=== PATIENT | female | born 1950 | race Caucasian/White ===

== ENCOUNTER 2019-05-24 18:03 | Inpatient (IN) ==
[2019-05-24] MEDS ORDERED: DUONEB (A & A) INH ONE (19:30)
[2019-05-24] MEDS ORDERED: SOLU-MEDROL IV ONE (19:30)
[2019-05-24 20:19] LABS: BASO# 0.09 X1000 (0.0-0.2); BASO% 1.6 % (0.0-0.8); EOS# 0.11 X1000 (0.0-0.7); EOS% 1.9 % (0.0-10.0); IMM GRAN# 0.02 X1000 (0.0-0.04); IMM GRAN% 0.4 % (0.0-0.5); LYMPH# 0.99 X1000 (1.2-3.4); LYMPH% 17.4 % (20.5-51.1); MCHC 33.3 g/dL (33-37); MCV 96.1 FL (81-99); MONO# 0.68 X1000 (0.11-0.59); MONO% 11.9 % (1.7-9.3); MPV 10.7 FL (7.4-10.4); NEUT# 3.81 X1000 (1.4-6.5); NEUT% 66.8 % (42.2-75.2); PLT 222 X1000 (130-400); RBC 4.37 XMIL (4.2-5.4); RDW 12.4 % (11.5-14.5)
--- NOTE | 2019-05-24 20:19 | Diag Imaging Result Doc PS360 ---
EXAM: CHEST-1 VIEW HISTORY: sob TECHNIQUE: Single view COMPARISON: None. FINDINGS: The lungs are well expanded. The heart is not enlarged. The vessels are not distended. There are no infiltrates. No effusion identified. IMPRESSION: Negative exam. Electronically signed by Rasheed Wren 05/24/2019 8:16 PM
[2019-05-24 20:25] LABS: AGAP 11; ALB/GLOB RATIO 1.5; ALBUMIN 4.2 g/dL (3.5-5.0); ALKALINE PHOSPHATASE 81 U/L (32-104); BUN 3 mg/dL (8-22); CALCIUM 8.5 mg/dL (8.8-10.2); CHLORIDE 93 mmol/L (98-107); COSMO 255; CREATININE 0.8 mg/dL (0.5-0.9); ESTIMATED GFR > 60; GLUCOSE 97 mg/dL (70-104); GOT 29 U/L (10-30); GPT 13 U/L (10-36); POTASSIUM 4.3 mmol/L (3.5-5.1); SODIUM 129 mmol/L (136-145); TCO2 25 mmol/L (25-35); TOTAL BILIRUBIN 0.22 mg/dL (0.20-1.00)
--- NOTE | 2019-05-24 20:37 | EKG Report ---
Test Performed on : 05/24/2019 8:33:05 PM Test Reason : SOB Blood Pressure : / mmHG Vent. Rate : 083 BPM Atrial Rate : 083 BPM P-R Int : 116 ms QRS Dur : 100 ms QT Int : 376 ms P-R-T Axes : 071 -64 073 degrees QTc Int : 441 ms Normal sinus rhythm. Possible Left atrial enlargement Left axis deviation Incomplete right bundle branch block Septal infarct , age undetermined Abnormal ECG No previous ECGs available Unconfirmed Result
--- NOTE | 2019-05-24 23:30 | PROVIDER DOCUMENTATION ---
This chart was entered by Josh Waggoner Scribe, acting as scribe for Jose Ochoa MD. HPI-Respiratory General - General Chief Complaint: Shortness of Breath Stated Complaint: SOB Time Seen by Provider: 05/24/19 19:25 Source: patient Allergies/Adverse Reactions: Patient Allergies Allergy/AdvReac Type Severity Reaction Status Date / Time Penicillins Allergy ANAPHYLAXIS Verified 05/24/19 18:39 Sulfa (Sulfonamide Allergy HIVES Verified 05/24/19 18:39 Antibiotics) - History of Present Illness-Resp Nature of Presenting Problem: Pt is a 69 yof who presents to the ED with a CC of shortness of breath. Pt reports she became short of breath last night at approximately 2200. Pt reports a hx of COPD and states she has a chronic cough. Pt reports her cough has recently worsened and also complains of nasal congestion, a headache, and neck pain. Pt reports using an emergency inhaler and taking symbicort for her symptoms but denies any relief. Quality of Pain: reports: dull Severity in ED: reports: mild Onset/Duration: reports: last night Timing: reports: still present Cough Quality/Degree: reports: mild Episode Frequency: chronic episodes Current Respiratory Medication Therapy: Initiated see nurses note Associated Symptoms: reports: cough, nasal congestion, shortness of breath Similar Symptoms Previously?: Yes Recently seen or treated by another doctor?: No Review of Systems - Adult - REVIEW OF SYSTEMS - ADULT Constitutional: reports: see HPI Eyes: reports: no symptoms reported Ears, Nose, Mouth & Throat: reports: see HPI, sinus problem Respiratory: reports: see HPI, chronic cough, shortness of breath Gastrointestinal: reports: no symptoms reported Genitourinary: reports: no symptoms reported Musculoskeletal: reports: see HPI, neck pain Integumentary: reports: no symptoms reported Neurological: reports: see HPI, headache/migraines Psychiatric: reports: no symptoms reported Endocrine: reports: no symptoms reported Hematologic/Lymphatic: reports: no symptoms reported Allergic/Immunologic: reports: no symptoms reported All Other Systems: Reviewed and Negative Past History - Adult - PAST MEDICAL HISTORY-ADULT Review of Records: reports: Old Records Reviewed, Nursing Assessment Review, Medications Reviewed, Social history reviewed & non-contributory. Major Childhood Illnesses: reports: denies history Cardiovascular: reports: denies history Respiratory: reports: COPD Gastrointestinal: reports: denies history Obstetrical/Gynecological: reports: denies history Genitourinary: reports: denies history Musculoskeletal: reports: denies history Neurological: reports: denies history Endocrine/Immune: reports: denies history Other Conditions: reports: denies history - PRIOR SURGERIES/PROCEDURES Surgical/Procedure History: reports: - IMMUNIZATION STATUS Childhood Immunizations: See Nurse Assessment Flu Vaccine: See Nurse Assessment - FAMILY HISTORY Family History: reviewed, not pertinent - SOCIAL HISTORY Smoking: cigarettes, greater than 1 pack/day Substance Use: none/never, denies Alcohol Use Frequency: never Physical Exam-General - PHYSICAL EXAM-ADULT Initial Vital Signs Reviewed: Yes - CONSTITUTIONAL General Appearance: alert, mild distress - EYES Eyes: PERRL/EOMI, pink conjunctivae - HEAD, EARS, NOSE, MOUTH & THROAT HENMT: normocephalic/atraumatic, moist mucous membranes - RESPIRATORY Respiratory: no respiratory distress, no accessory muscle use - CARDIOVASCULAR Cardiovascular: normal peripheral pulses, regular rate, rhythm, no edema - MUSCULOSKELETAL Extremity: normal range of motion, non-tender - SKIN Integumentary: normal color, warm/dry - NEUROLOGIC Neurologic: grossly normal, no motor/sensory deficits - PSYCHIATRIC Psych/Mental Status: normal mood/affect, normal thought content, normal thought process, oriented x 3 Progress - PLAN OF CARE/RESULTS Progress/Plan/Lab Results: Vital Signs - 8 hr 05/24/19 18:30 05/24/19 18:33 05/24/19 19:01 Temperature 98.6 F Pulse Rate 81 78 82 Respiratory Rate 19 20 24 Blood Pressure 147/76 147/76 117/105 O2 Sat by Pulse Oximetry 98 99 05/24/19 19:31 05/24/19 19:58 05/24/19 20:01 Temperature Pulse Rate 82 82 80 Respiratory Rate 18 18 19 Blood Pressure 160/53 150/76 172/82 O2 Sat by Pulse Oximetry 97 97 98 05/24/19 20:09 05/24/19 20:31 05/24/19 21:31 Temperature Pulse Rate 83 89 82 Respiratory Rate 16 17 19 Blood Pressure 160/67 158/79 O2 Sat by Pulse Oximetry 97 98 96 05/24/19 22:02 05/24/19 22:16 05/24/19 22:31 Temperature Pulse Rate 90 99 H 84 Respiratory Rate Blood Pressure 170/76 182/156 O2 Sat by Pulse Oximetry 94 L 94 L 95 05/24/19 23:01 Temperature Pulse Rate 85 Respiratory Rate Blood Pressure 136/86 O2 Sat by Pulse Oximetry 95 05/24/19 20:46 Influenza Screen - Final Nasopharyngeal Laboratory Results - last 24 hr 05/24/19 05/24/19 05/24/19 18:50 18:50 18:50 WBC 5.70 RBC 4.37 Hgb 14.0 Hct 42.0 MCV 96.1 MCH 32.0 H MCHC 33.3 RDW Std Deviation 12.4 Plt Count 222 MPV 10.7 H Immature Gran % (Auto) 0.4 Neut % (Auto) 66.8 Lymph % (Auto) 17.4 L Coles % (Auto) 11.9 H Eos % (Auto) 1.9 Baso % (Auto) 1.6 H Immature Gran # (Auto) 0.02 Neut # (Auto) 3.81 Lymph # (Auto) 0.99 L Coles # (Auto) 0.68 H Eos # (Auto) 0.11 Baso # (Auto) 0.09 Sodium 129 L Potassium 4.3 Chloride 93 L Carbon Dioxide 25 Anion Gap 11 BUN 3 L Creatinine 0.8 Estimated GFR/1.73 m2 > 60 BUN/Creatinine Ratio 4 Glucose 97 Calculated Osmolality 255 Calcium 8.5 L Total Bilirubin 0.22 AST 29 ALT 13 Alkaline Phosphatase 81 Troponin T Spl-[id number]-Ctvcxkcdsjg Pept 692 H Total Protein 7.0 Albumin 4.2 Globulin 2.8 Albumin/Globulin Ratio 1.5 05/24/19 18:50 WBC RBC Hgb Hct MCV MCH MCHC RDW Std Deviation Plt Count MPV Immature Gran % (Auto) Neut % (Auto) Lymph % (Auto) Coles % (Auto) Eos % (Auto) Baso % (Auto) Immature Gran # (Auto) Neut # (Auto) Lymph # (Auto) Coles # (Auto) Eos # (Auto) Baso # (Auto) Sodium Potassium Chloride Carbon Dioxide Anion Gap BUN Creatinine Estimated GFR/1.73 m2 BUN/Creatinine Ratio Glucose Calculated Osmolality Calcium Total Bilirubin AST ALT Alkaline Phosphatase Troponin T 0.012 Jpz-[id number]-Ymohsgaxvfb Pept Total Protein Albumin Globulin Albumin/Globulin Ratio Orders Category Date Time Status Nursing- Obtain EKG ONCE Care 05/24/19 19:30 Active CHEST-1 VIEW [RAD] Stat Exams 05/24/19 19:30 Completed CBC WITH ELECTRONIC DIFF [HEME] Stat Lab 05/24/19 18:50 Completed COMPREHENSIVE METABOLIC PANEL [CHEM] Stat Lab 05/24/19 18:50 Completed INFLUENZA SCREEN A/B Stat Lab 05/24/19 20:46 Completed PRO B-NATRIURETIC PEPTIDE Stat Lab 05/24/19 18:50 Completed TROPONIN T Stat Lab 05/24/19 18:50 Completed Albuterol 2.5MG/Ipratrop 0.5MG [Duoneb (A & A)] Med 05/24/19 19:30 Discontinued 3 ml INH NOW ONE Methylprednisolone Sod Succ [Solu-Medrol] Med 05/24/19 19:30 Discontinued 125 mg IV NOW ONE Aerosol Treatments Routine Oth 05/24/19 19:32 Completed Aerosol Treatments Stat Oth 05/24/19 19:32 Completed EKG [EKG] Stat Ther 05/24/19 19:30 Draft Result Diagrams: 05/24/19 18:50 05/24/19 18:50 - EKG 1 Time of EKG reading by physician:: 20:34 EKG Read and Signed by:: Jose Ochoa EKG Interpretation (*Must complete 3 of following elements*): Abnormal (Possible left atrial enlargement; Incomplete right bundle branch block; Septal infarct, age undetermined) Rate: 83 Rhythm: NSR [place]: normal QRS: normal VA Interval: normal ST Wave: normal - XRAY 1 XRAY: Bilateral XRAY Study: Chest Impression: See EMR Report ( EXAM: CHEST-1 VIEW HISTORY: sob TECHNIQUE: Single view COMPARISON: None. FINDINGS: The lungs are well expanded. The heart is not enlarged. The vessels are not distended. There are no infiltrates. No effusion identified. IMPRESSION: Negative exam. Electronically signed by Rasheed Wren 05/24/2019 8:16 PM 05/24/192015 Interpreting Physician: Rasheed Wren MD Dictated Date/Time: 05/24/192015 cc: Jose Ochoa MD; Rip Lemon) Departure - Departure Date of Disposition Decision: 05/24/19 Time of Disposition Decision: 23:30 DIAGNOSIS: COPD exacerbation Disposition: ADMITTED INPATIENT 09 Certified Medical Emergency: Emergent Condition: Stable Additional Instructions: ED Follow Up Instructions: You have been treated by a care provider in the Emergency Department. These instructions are being provided to you so you can have an understanding of how to care for yourself upon discharge. Upon discharge from the Emergency Department, you are responsible for making arrangements for follow-up care by a physician of your choice. Take all prescribed medications as directed. Return to the Emergency Department immediately for any new or worsening symptoms. You may call the Physician Referral phone number at [phone] to obtain a list of Physicians who are taking new patients. Referrals and Follow-Ups: Rip Lemon [Primary Care Provider] - - Critical Care Note This patient required my direct & personal management of CC.: No Attestation - Physician/ VEGA Attestation Patient care was provided by Advanced Practice Provider:: No The physician spent face to face time with patient:: Yes Advanced Practice Provider documentation review:: Supervising physician onsite and consulted in the evaluation and care of this patient. The physician did have a face to face encounter with the patient. This chart was documented by the indicated scribe, (Josh Waggoner, Jamesibdanielle) and accurately reflects the services I performed and decisions made by me, Jose Ochoa MD, as attested by the provider's signature.
[2019-05-25] MEDS: NS 1,000 ML IV SCH ×2 (01:46→14:12)
[2019-05-25] MEDS: LEVAQUIN 500 MG/D5W 500 MG/100 ML IVPB IV SCH (01:47)
[2019-05-25] MEDS: SOLU-MEDROL IV SCH ×3 (01:48→17:32)
[2019-05-25] MEDS: LOVENOX SUBQ SCH (01:49)
[2019-05-25] MEDS: OXY IR PO PRN ×3 (02:03→14:23)
[2019-05-25] MEDS: KLONOPIN PO SCH ×3 (02:29→20:50)
[2019-05-25] MEDS: DUONEB (A & A) INH SCH ×6 (04:01→23:24)
--- NOTE | 2019-05-25 04:37 | HISTORY AND PHYSICAL ---
PRIMARY CARE PHYSICIAN: Dr. Lemon CHIEF COMPLAINT: Shortness of breath times several days. HISTORY OF PRESENTING ILLNESS: A 69-year-old female with a history of COPD and lupus who had presented to the emergency department with several days history of having worsening shortness of breath. The patient states that she was having difficulty breathing despite doing her inhalers and subsequently had come to the emergency department. In the ED, she was evaluated and due to her presenting symptoms it was thought that she would need admission for further management. At the time of my examination, patient denied any headache, fever, chills, chest pain, hemoptysis, melena, but complained of shortness of breath and coughing. PAST MEDICAL HISTORY: Includes lupus, COPD. PAST SURGICAL HISTORY: Hysterectomy, colon resection, bladder surgery. ALLERGIES: Penicillin and sulfa. CURRENT MEDICATIONS: Include Symbicort 160/4.5 one inhalation b.i.d., clonazepam 0.5 mg p.o. b.i.d., Premarin 1.25 mg 1 tablet at bedtime, hydroxychloroquine 200 mg 2 tablets p.o. daily, oxycodone 10 mg p.o. t.i.d., sertraline 50 mg p.o. at bedtime, trazodone 50 mg half tablet p.o. at bedtime. SOCIAL HISTORY: Fifty pack years history of smoking. She denies any history of alcohol or illicit drug use. FAMILY HISTORY: No history of coronary artery disease. REVIEW OF SYSTEMS: Fourteen point review of systems as listed in HPI. Other systems negative. PHYSICAL EXAMINATION: GENERAL: Cooperative, friendly female. She is resting more comfortably. She is able to speak in full sentences. VITAL SIGNS: Temperature 98.6 degrees, pulse 81, respiration 19, blood pressure 147/76. HEENT: Atraumatic, normocephalic. Extraocular movements intact. PERRLA. NECK: No masses. CHEST: Scattered wheezes. CARDIOVASCULAR: Regular rate and rhythm. ABDOMEN: Soft. Positive bowel sounds. EXTREMITIES: No edema. NEUROLOGIC: She is awake, alert, oriented x3. GENITOURINARY: No bladder distention. SKIN: Warm. LABORATORIES AND STUDIES: WBCs 5.70, hemoglobin 14.1, hematocrit 42.0, platelets 222,000. Sodium 129, potassium 4.3, chloride 93, CO2 is 25, BUN is 3, creatinine 0.8, glucose is 97. Chest x-ray negative. ASSESSMENT: A 69-year-old female with a history of lupus and chronic obstructive pulmonary disease, who had presented to emergency department with several days history of worsening shortness of breath. She was evaluated in the emergency department. It seems that she was having an exacerbation of her COPD. Subsequently, she will require admission for further management. 1. Acute chronic obstructive pulmonary disease exacerbation. 2. Lupus. 3. Ongoing tobacco abuse. PLAN: 1. We will admit patient to medical floor with telemetry. 2. We will continue with DuoNebs, IV Solu-Medrol, IV antibiotics. 3. We will restart other home medications. 4. Counseled patient extensively on smoking cessation. 5. We will evaluate to see if the patient needs home oxygen and we will consult social service. 6. We will put patient on DVT prophylaxis with Lovenox. 7. We will continue to follow, and reassess and make further recommendation based on patient's clinical course. cc: Ortega Mckinnon MD MTDD
[2019-05-25] MEDS: ZOLOFT PO SCH (13:30)
[2019-05-25] MEDS: PLAQUENIL PO SCH (20:49)
[2019-05-25] MEDS ORDERED: ZOLOFT PO SCH (21:00)
[2019-05-25] MEDS ORDERED: DESYREL PO SCH ×2 (21:00)
[2019-05-25] MEDS ORDERED: PREMARIN PO SCH (21:00)
[2019-05-25] MEDS ORDERED: HALL'S COUGH LOZENGE MT PRN (21:08)
[2019-05-25] MEDS: TESSALON PO PRN (21:45)
[2019-05-25] MEDS: NICODERM PATCH TD PRN (21:45)
[2019-05-26] MEDS: OXY IR PO PRN ×3 (00:41→15:21)
[2019-05-26] MEDS: LEVAQUIN 500 MG/D5W 500 MG/100 ML IVPB IV SCH (00:42)
[2019-05-26] MEDS: LOVENOX SUBQ SCH (00:43)
[2019-05-26] MEDS: NS 1,000 ML IV SCH (00:45)
[2019-05-26] MEDS: DUONEB (A & A) INH SCH ×6 (03:19→23:19)
[2019-05-26 06:04] LABS: AGAP 13; BUN 8 mg/dL (8-22); CALCIUM 9.1 mg/dL (8.8-10.2); CHLORIDE 97 mmol/L (98-107); COSMO 276; CREATININE 0.5 mg/dL (0.5-0.9); ESTIMATED GFR > 60; GLUCOSE 98 mg/dL (70-104); POTASSIUM 4.3 mmol/L (3.5-5.1); SODIUM 139 mmol/L (136-145); TCO2 29 mmol/L (25-35)
[2019-05-26] MEDS: TESSALON PO PRN (09:46)
[2019-05-26] MEDS: KLONOPIN PO SCH ×2 (09:46→20:49)
[2019-05-26] MEDS: ZOLOFT PO SCH (09:46)
[2019-05-26] MEDS ORDERED: FIORICET PO ONE (14:10)
[2019-05-26] MEDS ORDERED: TORADOL IV PRN (14:10)
[2019-05-26] MEDS ORDERED: RESTORIL PO PRN (14:13)
[2019-05-26] MEDS ORDERED: CHLORASEPTIC SPRAY MT PRN (14:14)
[2019-05-26] MEDS ORDERED: CHLORASEPTIC SPRAY MT ONE (14:14)
[2019-05-26] MEDS ORDERED: DIFLUCAN PO ONE (14:15)
--- NOTE | 2019-05-26 14:33 | PROGRESS NOTE ---
DATE: 05/26/2019 SUBJECTIVE: She has multiple complaints, actually multiple, multiple complaints. She has a sore throat. She has complaints of cough, headache, not sleeping well. OBJECTIVE: Blood pressure 162/75, heart rate 92, respiratory 16, temperature 97.9 degrees, 100% on 2 L but she is currently on 3 L. Objective as described.Cardiovascular: Regular rate and rhythm. Pulmonary: She has kind of bronchial breath sounds the right upper and lower lung cruz. No rales, no wheezing. GI: Soft, nontender, nondistended. Bowel sounds are positive. LABORATORY DATA: Basic looks okay. PROBLEM LIST: 1. Chronic obstructive pulmonary disease exacerbation, acute. We will continue breathing treatments and antibiotics. She is not on any steroids or at least that I can tell she is on some inhaled steroids. I may give her just a couple doses of Solu-Medrol and see how she does because she still does not feel very well. Disposition, we will repeat her chest x-ray tomorrow to decide if she has any infiltrates. Currently she is on Levaquin. 2. Tobacco abuse. Advised on cessation. 3. Systemic lupus erythematosus. She is on hydroxychloroquine, will continue to follow. 4. Disposition pending her clinical status. cc: Maurilio Reyes MD
[2019-05-26] MEDS: SOLU-MEDROL IV SCH (15:21)
[2019-05-26] MEDS: SYMBICORT 160/4.5 MICROGM INHALER INH SCH (19:55)
[2019-05-26] MEDS: PLAQUENIL PO SCH (20:49)
[2019-05-26] MEDS: OXYCONTIN PO SCH (20:49)
[2019-05-26] MEDS: DESYREL PO SCH (20:49)
[2019-05-27] MEDS: LOVENOX SUBQ SCH (00:25)
[2019-05-27] MEDS: LEVAQUIN 500 MG/D5W 500 MG/100 ML IVPB IV SCH (00:25)
[2019-05-27] MEDS: SOLU-MEDROL IV SCH ×2 (01:50→14:39)
[2019-05-27] MEDS: TESSALON PO PRN ×2 (02:47→20:22)
[2019-05-27] MEDS: DUONEB (A & A) INH SCH ×7 (03:36→23:21)
[2019-05-27 05:30] LABS: BASO# 0.01 X1000 (0.0-0.2); BASO% 0.2 % (0.0-0.8); HEMATOCRIT 42.1 % (37.0-47.0); HEMOGLOBIN 13.8 g/dL (12.0-16.0); LYMPH# 0.51 X1000 (1.2-3.4); LYMPH% 11.6 % (20.5-51.1); MCH 31.7 PG (27-31); MCHC 32.8 g/dL (33-37); MCV 96.6 FL (81-99); MONO# 0.16 X1000 (0.11-0.59); MONO% 3.6 % (1.7-9.3); MPV 10.3 FL (7.4-10.4); NEUT# 3.73 X1000 (1.4-6.5); NEUT% 84.6 % (42.2-75.2); PLT 215 X1000 (130-400); RBC 4.36 XMIL (4.2-5.4); RDW 12.3 % (11.5-14.5); WBC 4.41 X1000 (4.8-10.8)
[2019-05-27 05:47] LABS: AGAP 14; BUN 9 mg/dL (8-22); CALCIUM 9.3 mg/dL (8.8-10.2); CHLORIDE 92 mmol/L (98-107); COSMO 271; CREATININE 0.6 mg/dL (0.5-0.9); ESTIMATED GFR > 60; GLUCOSE 104 mg/dL (70-104); POTASSIUM 4.3 mmol/L (3.5-5.1); SODIUM 136 mmol/L (136-145); TCO2 30 mmol/L (25-35)
[2019-05-27] MEDS: SYMBICORT 160/4.5 MICROGM INHALER INH SCH ×2 (07:44→20:04)
--- NOTE | 2019-05-27 08:40 | Diag Imaging Result Doc PS360 ---
EXAM: CHEST-2 VIEWS HISTORY: hypoxia TECHNIQUE: PA and Lateral chest x-ray COMPARISON: 05/24/2019 FINDINGS: The cardiomediastinal silhouette is within normal limits. The pulmonary vasculature is not congested. No infiltrate, effusion, or pneumothorax is appreciated. There is moderate pulmonary emphysema. IMPRESSION: No acute cardiopulmonary abnormality is identified. Pulmonary emphysema. Electronically signed by Joellen Loja 05/27/2019 8:37 AM
[2019-05-27] MEDS: ZOLOFT PO SCH (09:00)
[2019-05-27] MEDS: KLONOPIN PO SCH ×2 (09:00→20:13)
[2019-05-27] MEDS: OXYCONTIN PO SCH (09:00)
--- NOTE | 2019-05-27 12:32 | PROGRESS NOTE ---
DATE: 05/27/2019 SUBJECTIVE: The patient is resting in bed. Has significant others in the room. OBJECTIVE: Vital Signs: Temperature 97.9 degrees, pulse 80, respiratory rate 16, blood pressure 156/74, oxygen saturation is 96%. HEENT: Atraumatic and normocephalic. Cardiovascular System: S1, S2. Respiratory System: Relatively clear lung cruz. Abdomen: Soft, nontender. No masses felt. Extremities: No evidence of edema. Central Nervous System: No obvious focal deficits noted. Labs: WBCs 4.41 hematocrit 42.1, with a platelet count of 215,000. Sodium is 136, potassium is 4.3, chloride is 92, bicarb is 30, BUN is 9, creatinine 0.6. ASSESSMENT AND PLAN: 1. Chronic obstructive pulmonary disease exacerbation. Maintain patient on nebulized bronchodilators, steroids, as well as antibiotics. Continue oxygen supplementation. The patient advised on smoking cessation. We will check room air ABG to determine need for home oxygen. 2. Lupus. Continue hydroxychloroquine. 3. Severe headaches. We will obtain a CT scan of the head and place the patient on analgesics. 4. Deep vein thrombosis prophylaxis. Lovenox. cc: Albert Brown MD
[2019-05-27] MEDS: NICODERM PATCH TD PRN (14:36)
--- NOTE | 2019-05-27 16:21 | Diag Imaging Result Doc PS360 ---
CT HEAD W/O CONTRAST - 05/27/2019 INDICATION: Headaches COMPARISON: None FINDINGS: The ventricles and sulci are normal in size and contour. No intracranial mass or hemorrhage. There are some trace subcortical white matter hypodensities scattered throughout the cerebral hemispheres, nonspecific but suggesting chronic microvascular ischemia. The skull is intact. The sinuses, mastoids, and middle ears are clear. IMPRESSION: No acute disease. This exam was performed using automated exposure control, adjustment of mA or kV according to patient size, and/or use of iterative reconstruction technique Electronically signed by Saul Barbosa 05/27/2019 4:18 PM
[2019-05-27] MEDS: PLAQUENIL PO SCH (20:12)
[2019-05-27] MEDS: DESYREL PO SCH (20:12)
[2019-05-27] MEDS: PERICOLACE PO PRN (20:22)
[2019-05-27] MEDS: PERCOCET-10 PO PRN (20:22)
[2019-05-28] MEDS: LEVAQUIN 500 MG/D5W 500 MG/100 ML IVPB IV SCH (02:01)
[2019-05-28] MEDS: SOLU-MEDROL IV SCH ×3 (02:01→21:38)
[2019-05-28] MEDS: LOVENOX SUBQ SCH (02:02)
[2019-05-28] MEDS: DUONEB (A & A) INH SCH ×6 (03:15→22:49)
[2019-05-28] MEDS: PERCOCET-10 PO PRN ×3 (03:37→17:14)
[2019-05-28] MEDS: SYMBICORT 160/4.5 MICROGM INHALER INH SCH ×2 (08:13→19:10)
[2019-05-28] MEDS: KLONOPIN PO SCH ×2 (08:21→21:38)
[2019-05-28] MEDS: ZOLOFT PO SCH (08:21)
--- NOTE | 2019-05-28 17:13 | PROGRESS NOTE ---
DATE: 05/28/2019 SUBJECTIVE: Ms. Vera says she is breathing a little bit better. She was admitted on 05/25/2019. This is a patient of Dr. Rip Lemon. She came in with shortness of breath. She said she got where she couldn't breathe. [place]. She has a history of COPD, history of lupus, and presented to the emergency department with a several day history of having worsening shortness of breath, and also just could not breathe. She presented to the emergency room with hypoxemia. Past medical history of systemic lupus erythematosus and COPD. Past surgical history of hysterectomy, colon resection, and bladder surgery. Allergies to penicillin and sulfa. Today, felt better. She does need something for her bowels. She says she takes Senna Plus about 4 of them every evening, and that is only thing that works. She is on nicotine patch because she is still smoking. She has tried Wellbutrin and Chantix. She says she is allergic to both of those, make her mouth swell, and breaks out. OBJECTIVE: Temperature 98.3 degrees, pulse 90, respirations 20, and blood pressure 136/65. Pupils are equal and round. Lungs are clear in all lung cruz. Cardiovascular exam regular rhythm and rate without murmur or S3. Urine output is 2500 mL. ASSESSMENT AND PLAN: 1. Chronic obstructive pulmonary disease exacerbation. Continue nebulizer broncho treatment, steroids, antibiotics, and O2 supplementation. Try and wean her off the oxygen. She does not have oxygen at home. Of course, she is on a nicotine patch. 2. Lupus. She takes hydroxychloroquine, and will continue that. 3. Severe headache, which seems to be better. CT of her head unremarkable. 4. She is on DVT prophylaxis. She has got Tessalon Perles. She takes DuoNeb 3 mL treatment q.4 hours. She is on Desyrel 50 mg at bedtime, Lovenox 40 mg subcutaneous q.24 hours, hydroxychloroquine 400 mg p.o. at bedtime, Levaquin 500 mg IV q.24 hours, methylprednisone 40 mg IV q. 12, nicotine patch 21 mg q.24 hours, and Zoloft 50 mg every morning, and Restoril 15 mg at bedtime. 5. I am going to try some Senna Plus 4 of them daily. Change her to a regular diet at her request. We will add Diflucan because she is getting some yeast irritation, and may be Gyne- Lotrimin cream vaginally. I am going to go up on methylprednisone to 40 mg q.8. We will start physical therapy and see if we can get her up. cc: Jamison Herrera MD
[2019-05-28] MEDS: DIFLUCAN PO SCH (17:14)
[2019-05-28] MEDS: DESYREL PO SCH (21:37)
[2019-05-28] MEDS: SENOKOT PO SCH (21:38)
[2019-05-28] MEDS: PLAQUENIL PO SCH (21:38)
[2019-05-29] MEDS: PERCOCET-10 PO PRN ×4 (00:30→20:55)
[2019-05-29] MEDS: LEVAQUIN 500 MG/D5W 500 MG/100 ML IVPB IV SCH (00:31)
[2019-05-29] MEDS: LOVENOX SUBQ SCH (00:31)
[2019-05-29] MEDS: DUONEB (A & A) INH SCH ×6 (03:29→23:20)
[2019-05-29] MEDS: SOLU-MEDROL IV SCH ×3 (05:46→23:31)
[2019-05-29] MEDS: SYMBICORT 160/4.5 MICROGM INHALER INH SCH ×2 (07:45→19:36)
[2019-05-29] MEDS: ZOLOFT PO SCH (08:48)
[2019-05-29] MEDS: DIFLUCAN PO SCH (08:48)
[2019-05-29] MEDS: KLONOPIN PO SCH ×2 (08:48→20:55)
[2019-05-29] MEDS: PERICOLACE PO PRN ×2 (08:57→14:16)
--- NOTE | 2019-05-29 15:54 | PROGRESS NOTE ---
DATE: 05/29/2019 SUBJECTIVE: Ms. Vera is breathing much better. The question is whether she needs oxygen at home. I talked to her son. We are going to see if she needs oxygen. She has chronic COPD, and she has really no element of bronchospasm at this point. OBJECTIVE: Vital Signs: Temperature 97.8 degrees, pulse 80, respirations 20, blood pressure 166/67. Eyes: Pupils are equal. Neck: No distended neck veins. CVP less than 6 cm from right atrium. Lungs: Clear anterolateral. Decreased breath sounds at both bases. Cardiovascular exam: Regular rhythm and rate without murmur or S3. Abdomen: Abdomen is soft. Skin: Skin is warm and dry. ASSESSMENT AND PLAN: 1. Chronic obstructive pulmonary disease. She continued bronchodilators and O2 which may lead home. 2. Home oxygen. 3. Headache is better and she has been eating, so we are going to see if she is eligible for home O2, and recheck a chest x-ray in the morning. Her chest x-ray on the 2nd: No acute cardiopulmonary abnormality, and we will see if she is eligible for oxygen and that would benefit her. Aim to try and get her home maybe tomorrow afternoon. cc: Jamison Herrera MD
[2019-05-29] MEDS: NICODERM PATCH TD PRN (16:54)
[2019-05-29] MEDS: DESYREL PO SCH (20:55)
[2019-05-29] MEDS: PLAQUENIL PO SCH (20:55)
[2019-05-29] MEDS: SENOKOT PO SCH (20:55)
[2019-05-30] MEDS: LOVENOX SUBQ SCH (01:37)
[2019-05-30] MEDS: DUONEB (A & A) INH SCH ×4 (03:20→16:10)
[2019-05-30] MEDS: PERCOCET-10 PO PRN ×2 (04:28→10:49)
[2019-05-30] MEDS: SOLU-MEDROL IV SCH ×2 (06:47→14:13)
[2019-05-30] MEDS: SYMBICORT 160/4.5 MICROGM INHALER INH SCH (07:34)
[2019-05-30] MEDS: PERICOLACE PO PRN (08:36)
[2019-05-30] MEDS: KLONOPIN PO SCH (08:36)
[2019-05-30] MEDS: DIFLUCAN PO SCH (08:36)
[2019-05-30] MEDS: ZOLOFT PO SCH (08:36)
--- NOTE | 2019-05-30 08:58 | Diag Imaging Result Doc PS360 ---
EXAM: CHEST-2 VIEWS 05/30/2019 HISTORY: copd TECHNIQUE: PA and lateral chest COMMENT: There may be COPD. The heart size and pulmonary vascularity are within normal limits. The lungs are slightly hyperinflated with flattening of the hemidiaphragms. Compared to the previous study of 05/27/2019 there has been no significant change. There is apparent calcification in the left side of the neck which may be within the carotid artery. IMPRESSION: 1. COPD. 2. Apparent left carotid atherosclerotic calcification. Electronically signed by James Briones 05/30/2019 8:55 AM
--- NOTE | 2019-05-30 09:32 | PROGRESS NOTE ---
DATE: 05/30/2019 SUBJECTIVE: Ms Vera is breathing better, feeling better. I think she is eligible for oxygen. We are going to get another chest x-ray this morning, try and send her home with home oxygen. Her air and gas exchange have improved. OBJECTIVE: Vital signs: Temperature 98.3 degrees, pulse 87, respirations 16, blood pressure 151/70. HEENT: Pupils are equal and round. Lungs: Clear in all lung cruz. Cardiovascular: Regular rhythm and rate without murmur or S3. Abdomen: Soft. Skin is warm and dry. Urine output is 660 mL. IMAGING: Chest x-ray from this morning. COPD. Apparent left carotid atherosclerotic calcification appreciated. ASSESSMENT AND PLAN: 1. Chronic obstructive pulmonary disease with hypoxemia. Send her home with home O2. 2. Headache. Seems to be better. 3. No sign of active infection. We will see if we can get home health set up and get her home with home O2 today. cc: Jamison Herrera MD
--- NOTE | 2019-05-30 09:46 | DISCHARGE SUMMARY ---
ADMISSION DATE: 05/25/2019 DISCHARGE DATE: She is followed by Dr. Rip Lemon. She presented with shortness of breath that been going on for several days, got to a place where she felt like she could not breathe. This is a 69-year-old female with history of COPD and lupus, who presented to the emergency department for several days history of worsening shortness of breath. Patient states she was having difficulty despite her inhalers and subsequently came to the emergency room, evaluated. Due to presenting symptoms, thought she needed admission for further evaluation. PAST MEDICAL HISTORY: 1. Again includes systemic lupus erythematosus. 2. COPD. PAST SURGICAL HISTORY: Hysterectomy, colon resection, and bladder surgery. ALLERGIES: To penicillin and sulfa. ADMISSION DIAGNOSES: 1. Acute on chronic pulmonary disease with exacerbation and chronic hypoxemia. 2. Systemic lupus erythematosus, which appears to be quiescent at the present time. 3. Ongoing tobacco use, have counseled her on quitting tobacco. We put her on some Solu-Medrol and antibiotics to cover bronchitic organisms and her air and gas exchange seemed to improve. She does appear to require oxygen and so setting her up for home O2. DISCHARGE MEDICATION: Will see if we can continue her home medications. She is on budesonide formoterol 160/4.5 one puff twice a day. She takes Klonopin 1 p.o. b.i.d. She is on Premarin 1 tablet at bedtime, hydroxychloroquine, she takes 2 tablets daily, oxycodone she takes 1 tablet p.o. t.i.d. p.r.n., OxyContin she takes 1 tablet b.i.d., sertraline 1 tablet at bedtime, and Desyrel 0.5 mg at bedtime. We will see if we get home health set up for her and put her on 2 L nasal cannula 2 L/minute. cc: Jamison Herrera MD
[2019-05-30 16:19] VITALS: BP 164/70
== END 2019-05-30 18:03 | disposition home or self-care (01) | DRG 192 ==
LOC: SUPCPDRO → ED 18:03 → 1N 05-25 00:29 → SUATTDRO 05-25 00:29 → 3N 05-28 10:03
PROVIDERS: ATTEND Emergency Medicine